=== PATIENT | female | born 1950 | race Two or more races ===

== ENCOUNTER 2023-10-29 07:26 | Outpatient (CLI) | payer OTHER | END 2023-10-29 07:36 | disposition home or self-care (01) | LOC: TOM 07:26 | PROVIDERS: ATTEND Internal Medicine Hematology & Oncology | DX: I26.99 Other pulmonary embolism without acute cor pulmonale (principal) ==

== ENCOUNTER → 2023-10-29 08:04 | Outpatient (CLI) | payer OTHER | END | disposition home or self-care (01) | LOC: NUCLEAR 08:04 | PROVIDERS: ATTEND Internal Medicine Hematology & Oncology | DX: I82.402 Acute embolism and thrombosis of unspecified deep veins of left lower extremity (principal); I87.2 Venous insufficiency (chronic) (peripheral) ==

== ENCOUNTER 2023-11-13 06:50 | Outpatient (CLI) | payer OTHER | END 2023-11-13 07:20 | disposition home or self-care (01) | LOC: MRI 06:50 | PROVIDERS: ATTEND Internal Medicine Hematology & Oncology | DX: K76.89 Other specified diseases of liver (principal); K91.5 Postcholecystectomy syndrome | CPT/HCPCS: 74181 ==

== ENCOUNTER 2023-12-17 09:46 | Inpatient (IN) | payer OTHER ==
[~2023-12-17] VITALS: Ht 157.5 cm; Wt 70.8 kg
--- NOTE | 2023-12-17 10:11 | NUR ---
SE RECIBE PACIENET ALERTA Y ORIENTADA X3 REFIERE VENIR POR REFERIDO DE MUNGUIA GO POR VALOR PANICO D-DIMER EN [id number] NG/ML
[2023-12-17] MEDS ORDERED: DAFLONEX (10:16)
[2023-12-17] MEDS ORDERED: ELIQUIS5 MG PO (10:16)
--- NOTE | 2023-12-17 11:04 | NUR ---
SE EDUCA A PTE SOBRE TX A RECIBIR EN EL AREA LA MISMA REFIERE ENTENDER, SE ENVIAN DE FORMA INMEDIATA. SE TAYLER PTE EN ESPERA DE ESTUDIO PENDIENTE.
[2023-12-17 11:08] LABS: HEMOGLOBIN 13.8 g/dL (12.0-15.00); MEAN CELL VOLUME 89.3 fL (80.00-100.00); MEAN CORPUSCULAR HEMOGLOBIN 30.1 pg (27.00-32.0); MEAN CORPUSCULAR HGB CONC 33.7 g/dl (32.0-36.0); PLATELET COUNT 153 K/uL (150-450); RED BLOOD COUNT 4.59 M/uL (4.00-6.00); RED CELL DISTRIBUTION WIDTH 13.7 % (11.5-14.5)
[2023-12-17 11:32] LABS: CALCIUM 9.1 mg/dL (8.5-10.1); CREATININE SERUM 0.65 mg/dL (0.55-1.02); GFR 89.85; POTASSIUM 4.12 mEq/L (3.5-5.1)
[2023-12-17] MEDS ORDERED: BUTALB/ACETAMINOPHEN/CAFFEINE 1 TAB TABLET PO ONE (14:30)
[2023-12-17] MEDS ORDERED: ENOXAPARIN SODIUM 80 MG/0.8 ML SYRINGE SUBCUTANEO ONE (14:45)
[2023-12-17] MEDS ORDERED: ONDANSETRON HCL 4 MG in 0.9 % SODIUM CHLORIDE 50 ML IV PRN (17:30)
[2023-12-17] MEDS ORDERED: ACETAMINOPHEN 500 MG GEL..CAP PO PRN (17:30)
[2023-12-17] MEDS ORDERED: 0.9 % SODIUM CHLORIDE 1,000 ML IV SCH (17:30)
[2023-12-17] MEDS ORDERED: IPRATROPIUM BROMIDE 0.5 MG/2.5 ML AMPUL.NEB IH SCH (17:41)
[2023-12-17 18:46] VITALS: BP 130/79; O2SAT 100
[2023-12-17 19:57] LABS: URINE APPEARANCE Clear; URINE BILIRRUBIN Negative (NEGATIVE); URINE BLOOD Small; URINE COLOR Yellow; URINE GLUCOSE Negative (NEGATIVE); URINE LEUKOCYTE Negative; URINE NITRATE Negative; URINE PROTEIN Negative (NEGATIVE)
[2023-12-17 20:01] LABS: URINE BACTERIA 25.1 uL (0.0-1933); URINE EPITHELIAL CELLS 1.9 uL (0.0-38.8); URINE RBC 46.7 uL (0.0-20.8)
[2023-12-17 20:08] LABS: INR 1.16; PARTIAL THROMBOPLASTIN TIME 33.7 SECONDS (22.0-34.0); PROTHROMBIN TIME 12.5 SECONDS (9.0-11.5)
[2023-12-17 20:08] LABS: URINE CAST 0.15 uL (0.0-1.40); URINE KETONE 80 (NEGATIVE); URINE WBC 0 uL (0.0-23.2)
[2023-12-17 22:21] VITALS: BP 128/71; O2SAT 96
[2023-12-18 02:21] VITALS: BP 118/83; O2SAT 96
[2023-12-18] MEDS ORDERED: ENOXAPARIN SODIUM 80 MG/0.8 ML SYRINGE SUBCUTANEO SCH (05:00)
[2023-12-18 07:51] VITALS: BP 113/75; O2SAT 97
[2023-12-18] MEDS ORDERED: FAMOTIDINE/PF 20 MG in 0.9 % SODIUM CHLORIDE 8 ML IV PUSH SCH (09:00)
[2023-12-18 17:28] VITALS: BP 122/82
[2023-12-18] MEDS ORDERED: TEMAZEPAM 15 MG CAPSULE PO SCH (21:00)
[2023-12-19 01:29] VITALS: BP 110/75; O2SAT 97
[2023-12-19] MEDS ORDERED: APIXABAN 5 MG TABLET PO SCH (05:00)
[2023-12-19 09:58] VITALS: BP 130/83; O2SAT 98
[2023-12-19] MEDS ORDERED: MAGNESIUM SULFATE IN WATER 4 GM/100 ML PIGGYBACK IV STA (10:24)
[2023-12-19] MEDS ORDERED: POTASSIUM BICARBONATE/CIT AC 25 MEQ TABLET.EFF PO STA (10:28)
[2023-12-19] MEDS ORDERED: POTASSIUM CHLORIDE IN WATER 40 MEQ/100 ML PIGGYBAG IV SCH (14:00)
[2023-12-19] MEDS ORDERED: POTASSIUM BICARBONATE/CIT AC 25 MEQ TABLET.EFF PO SCH (17:00)
[2023-12-19 17:59] VITALS: BP 140/79
== END 2023-12-19 19:20 | DRG 300 ==
LOC: ER 09:48 → MEDI 19:21
PROVIDERS: Emergency Medicine; General Practice; ADMIT Internal Medicine; ATTEND Internal Medicine
PROC: B54BZZZ Ultrasonography of Right Lower Extremity Veins (ICD-10-PCS; principal; 2023-12-17)
PROC: CB121ZZ Planar Nuclear Medicine Imaging of Lungs and Bronchi using Technetium 99m (Tc-99m) (ICD-10-PCS; 2023-12-17)
PROC: B44FZZZ Ultrasonography of Right Lower Extremity Arteries (ICD-10-PCS; 2023-12-17)
PROC: B246ZZZ Ultrasonography of Right and Left Heart (ICD-10-PCS; 2023-12-18)
PROC: 3E0F7GC Introduction of Other Therapeutic Substance into Respiratory Tract, Via Natural or Artificial Opening (ICD-10-PCS; 2023-12-18)
DX: I82.441 Acute embolism and thrombosis of right tibial vein (principal); C22.1 Intrahepatic bile duct carcinoma; D68.59 Other primary thrombophilia; I82.451 Acute embolism and thrombosis of right peroneal vein; R06.02 Shortness of breath; Z91.041 Radiographic dye allergy status

== ENCOUNTER → 2023-12-22 08:38 | Outpatient (CLI) | payer OTHER ==
[~2023-12-22 08:38] MED LIST: DAFLONEX; ELIQUIS5 MG PO
== END | disposition home or self-care (01) ==
LOC: NUCLEAR 12-18 08:30
DX: C22.9 Malignant neoplasm of liver, not specified as primary or secondary (principal)
CPT/HCPCS: 78815; A9552

== ENCOUNTER 2024-01-19 07:48 | Day surgery (SDC) | payer OTHER ==
[2024-01-14 08:39] LABS: HEMATOCRIT 42.2 % (36.0-45.00); HEMOGLOBIN 14.3 g/dL (12.0-15.00); MEAN CELL VOLUME 86.7 fL (80.00-100.00); MEAN CORPUSCULAR HEMOGLOBIN 29.4 pg (27.00-32.0); MEAN CORPUSCULAR HGB CONC 33.9 g/dl (32.0-36.0); PLATELET COUNT 143 K/uL (150-450); RED BLOOD COUNT 4.87 M/uL (4.00-6.00); RED CELL DISTRIBUTION WIDTH 14.3 % (11.5-14.5)
[2024-01-14 09:02] LABS: PH,URINE 7.5 (5.0-8.0); URINE APPEARANCE Clear; URINE BILIRRUBIN Negative (NEGATIVE); URINE COLOR Yellow; URINE GLUCOSE Negative (NEGATIVE); URINE KETONE Trace (NEGATIVE); URINE LEUKOCYTE Negative; URINE NITRATE Negative; URINE PROTEIN Negative (NEGATIVE); URINE UROBILINOGEN 0.2 E.U./dl
[2024-01-14 09:03] LABS: URINE BACTERIA 19.5 uL (0.0-1933); URINE RBC 19.1 uL (0.0-20.8)
[2024-01-14 09:06] LABS: INR 1.11; PARTIAL THROMBOPLASTIN TIME 28.4 SECONDS (22.0-34.0)
[2024-01-14 09:10] LABS: ALBUMIN 3.6 gm/dL (3.4-5.0); BILIRUBIN TOTAL 0.47 mg/dL (0.3-1.2); CALCIUM 9.7 mg/dL (8.5-10.1); CREATININE SERUM 0.77 mg/dL (0.55-1.02); GFR 73.9; POTASSIUM 4.37 mEq/L (3.5-5.1); TOTAL PROTEIN 7.6 gm/dL (6.4-8.2)
[2024-01-14 09:15] LABS: URINE EPITHELIAL CELLS 0.9 uL (0.0-38.8); URINE WBC 0.3 uL (0.0-23.2)
[2024-01-14 09:16] LABS: URINE BLOOD Trace
[~2024-01-19 07:48] MED LIST changes: +TOPROL XL25 M1 PO; +XOPENEX HFA15 GM
[2024-01-19] MEDS ORDERED: LIDOCAINE HCL 1% 20 ML VIAL IJ ONE (14:00)
[2024-01-19] MEDS ORDERED: CEFAZOLIN SODIUM 1,000 MG VIAL IV ONE (14:00)
[2024-01-19] MEDS ORDERED: FAMOTIDINE/PF 20 MG/10 ML SYRINGE IV SCH (15:15)
[2024-01-19] MEDS ORDERED: CEFAZOLIN SODIUM 1,000 MG VIAL IV SCH (15:15)
== END 2024-01-19 16:25 | disposition home or self-care (01) ==
LOC: CIR.AMB 07:48
PROVIDERS: ATTEND Specialist
DX: C22.1 Intrahepatic bile duct carcinoma (principal)
CPT/HCPCS: 36561; C1751

== ENCOUNTER 2024-04-20 10:14 | Outpatient (CLI) | payer OTHER | END 2024-04-20 10:22 | disposition home or self-care (01) | LOC: TOM 10:14 | PROVIDERS: ATTEND Internal Medicine Hematology & Oncology | DX: C22.1 Intrahepatic bile duct carcinoma (principal) ==

== ENCOUNTER 2024-09-15 07:10 | Outpatient (CLI) | payer OTHER | END 2024-09-15 07:19 | disposition home or self-care (01) | LOC: TOM 07:10 | PROVIDERS: ATTEND Internal Medicine Hematology & Oncology | DX: C22.1 Intrahepatic bile duct carcinoma (principal) | CPT/HCPCS: 74178; Q9965 ==

== ENCOUNTER 2024-10-13 10:27 | Outpatient (CLI) | payer OTHER | END 2024-10-13 10:28 | disposition home or self-care (01) | LOC: NUCLEAR 10:27 | PROVIDERS: ATTEND Internal Medicine Hematology & Oncology | DX: I50.20 Unspecified systolic (congestive) heart failure (principal) ==

== ENCOUNTER → 2024-10-26 08:43 | Outpatient (CLI) | payer OTHER | END | disposition home or self-care (01) | LOC: NUCLEAR 08:43 | DX: I73.9 Peripheral vascular disease, unspecified (principal); R60.0 Localized edema ==

== ENCOUNTER 2024-10-27 08:23 | Outpatient (CLI) | payer OTHER | END 2024-10-27 08:24 | disposition home or self-care (01) | LOC: NUCLEAR 08:23 | DX: I73.9 Peripheral vascular disease, unspecified (principal); R60.0 Localized edema ==

== ENCOUNTER 2024-10-31 07:39 | Outpatient (CLI) | payer OTHER | END 2024-10-31 07:40 | disposition home or self-care (01) | LOC: NUCLEAR 07:39 | PROVIDERS: ATTEND Internal Medicine | DX: I50.30 Unspecified diastolic (congestive) heart failure (principal); I10 Essential (primary) hypertension ==

== ENCOUNTER 2024-12-11 14:01 | Inpatient (IN) | payer OTHER ==
[~2024-12-11] VITALS: Ht 162.6 cm; Wt 49.9 kg
--- NOTE | 2024-12-11 14:20 | NUR ---
SE RECIBE PTE ALERTA Y ORIENTADA X3 EN AMBULANCIOA EN COMPANIA DE FAMILIAR. LA MISMA REFIERE DEBILIDAD Y FALYA DE APETIRO. PTE CON CANULA A 2LT. CANALIZADA EN BRAZO NOHELIA CON ANGIO #22 CON .9NSS. SE OBSERVA METPORT EN LADO DERECHO. SE REALZIA EKG Y SE PRESENTA A DR. CHAPIN EL CUAL EVALUA Y FORMA EL MISMO. SE CONECTA A MONITOR CRADIACO Y SATUROMETRO.
[2024-12-11] MEDS ORDERED: 0.9 % SODIUM CHLORIDE 1,000 ML IV STA (14:34)
[2024-12-11 15:34] LABS: BASO % 0.0 % (0.1-1.2); EOS # 0.00 (0.04-0.54); EOS % 0.0 % (0.7-7.0); LYMPH # 0.54 (1.18-3.74); LYMPH % 88.5 % (19.3-53.1); MONO # 0.05 (0.24-0.82); MONO % 8.2 % (4.7-12.5); NEUT # 0.02 (1.56-6.13); NEUT % 3.3 % (34.0-71.1); RED CELL DISTRIBUTION WIDTH 19.6 % (11.6-14.4)
[2024-12-11 15:40] LABS: BUN CREA RATIO 20.0 (7.0-25.0); CREATININE SERUM 2.2 mg/dL (0.55-1.02); GFR 21.94; GLUCOSE FASTING 78.0 mg/dL (65-100); OSMOLALITY SERUM 289.0 MOSM/KG (275-295)
[2024-12-11 15:45] LABS: ALT/SGPT 12.0 U/L (12-78); AST/SGOT 39.0 U/L (15-37); BILIRUBIN TOTAL 1.74 mg/dL (0.3-1.2); BILIRUBIN,CONJUGATED 1.35 mg/dL (0.0-0.2)
[2024-12-11 15:46] LABS: INR 1.48
--- NOTE | 2024-12-11 16:02 | NUR ---
SE EDUCA PACIENTE SOBRE EL X MEDICO Y ESTA REFIERE ENTENDER. SE CANALIZA LA MISMA EN BRAZO NOHELIA # 22 Y MANO JOSÉ LUIS # 22 SE COLOCA IVFS. SE BRANDIE MUESTRAS DE LABORATORIOS Y SE ENVIAN. SE INSERTA MEEHAN # 16 BAJO MEDIDAS ESTERIL Y SE JULES U/A. PENDIENTE A PLACA
[2024-12-11 16:13] LABS: URINE APPEARANCE Clear; URINE BILIRRUBIN Negative (NEGATIVE); URINE BLOOD Negative; URINE COLOR Dark Yellow; URINE GLUCOSE Negative (NEGATIVE); URINE KETONE Negative (NEGATIVE); URINE LEUKOCYTE Trace; URINE NITRATE Negative; URINE PROTEIN Trace (NEGATIVE); URINE UROBILINOGEN 1.0 E.U./dl
[2024-12-11 16:16] LABS: URINE BACTERIA 5.9 uL (0.0-1933); URINE EPITHELIAL CELLS 3.5 uL (0.0-38.8); URINE RBC 2.1 uL (0.0-20.8)
[2024-12-11 16:32] LABS: URINE CAST 1.02 uL (0.0-1.40); URINE WBC 0.7 uL (0.0-23.2)
[2024-12-11] MEDS ORDERED: PANTOPRAZOLE SODIUM 40 MG in 0.9 % SODIUM CHLORIDE 8 ML IV PUSH SCH (20:57)
[2024-12-11] MEDS ORDERED: ONDANSETRON HCL 4 MG in 0.9 % SODIUM CHLORIDE 50 ML IV PRN (21:00)
[2024-12-11] MEDS ORDERED: PIPERACILLIN/TAZOBACTAM SODIUM 2.25 GM VIAL IV SCH (21:00)
[2024-12-11] MEDS ORDERED: DEXTROSE 5 %-0.45 % SOD CHLORD 1,000 ML IV SCH (21:30)
[2024-12-11] MEDS ORDERED: MORPHINE SULFATE 2 MG/ML SYRINGE IV PRN (21:30)
[2024-12-11] MEDS ORDERED: ACETAMINOPHEN 325 MG TABLET PO PRN (21:30)
[2024-12-11 23:00] VITALS: O2SAT 96
[2024-12-12 04:00] VITALS: BP 70/40; O2SAT 96
[2024-12-12 05:30] VITALS: BP 71/45
[2024-12-12] MEDS ORDERED: FILGRASTIM-AAFI 300 MCG/0.5 ML SYRINGE SUBCUTANEO SCH (09:00)
[2024-12-12] MEDS ORDERED: VANCOMYCIN HCL 1,000 MG VIAL IV NR (14:15)
[2024-12-12] MEDS ORDERED: MEROPENEM 500 MG/VIAL VIAL IV SCH (17:00)
[2024-12-12 17:29] VITALS: O2SAT 0
[2024-12-12 20:46] VITALS: O2SAT 95
[2024-12-13 00:35] VITALS: O2SAT 95
[2024-12-13 02:36] VITALS: O2SAT 95
[2024-12-13 03:30] VITALS: O2SAT 95
[2024-12-13 10:06] VITALS: O2SAT 0
== END 2024-12-13 15:30 | disposition expired | DRG 436 ==
LOC: ER 14:01 → MEDJ 20:59 → SEC-K 20:59 → MEDJ 12-12 00:30
PROVIDERS: General Practice; ADMIT Internal Medicine; ATTEND Internal Medicine
PROC: 8E0ZXY6 Isolation (ICD-10-PCS; principal; 2024-12-11)
PROC: 4A12X4Z Monitoring of Cardiac Electrical Activity, External Approach (ICD-10-PCS; 2024-12-11)
DX: C78.7 Secondary malignant neoplasm of liver and intrahepatic bile duct (principal); N17.9 Acute kidney failure, unspecified; Z68.1 Body mass index [BMI] 19.9 or less, adult; I95.9 Hypotension, unspecified; R63.0 Anorexia; R60.1 Generalized edema; D70.8 Other neutropenia; D69.6 Thrombocytopenia, unspecified; R54 Age-related physical debility; I46.9 Cardiac arrest, cause unspecified; D63.0 Anemia in neoplastic disease; N18.9 Chronic kidney disease, unspecified; Z66 Do not resuscitate; Z91.041 Radiographic dye allergy status; Z92.21 Personal history of antineoplastic chemotherapy